=== PATIENT | male | born 1985 | race Caucasian/White ===

== ENCOUNTER 2016-11-12 12:58 | Emergency (ER) | payer OTHER ==
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
--- NOTE | 2016-11-12 14:15 | ED ORDER SUMMARY ---
..... Patient: BRADLEY CHEW OrderSheet [facility] VisitID: [id number] [address] [place] [address] 30y, M Registration Date/Time: 11/12/2016 ORDER SHEET Weight: 63.5 kg (stated) Allergies: No Known Drug Allergy GENERAL ORDERS: Ribs Unilat w PA Chest Right Urgent (13:07 11/12/2016 Estelita A.R.N.P.) (Ack 13:08 LNations ER Tech1) (14:34 Thad R.N.) MEDICATION ORDERS: IV FLUIDS: ORDER SHEET NOTES: [Electronically signed by Daisy Lynn R.N. (14:35 11/12/2016)] [Electronically signed by Tiffanie CrookR.N.P. (17:46 11/12/2016)] [Electronically locked/signed by Daisy Lynn R.N. (14:35 11/12/2016)]
--- NOTE | 2016-11-12 14:15 | ED ORDER SUMMARY ---
..... Patient: BRADLEY CHEW OrderSheet Located [facility] VisitID: [id number] [address] [place] [address] 30y, M Registration Date/Time: 11/12/2016 ORDER SHEET Weight: 63.5 kg (stated) Allergies: No Known Drug Allergy GENERAL ORDERS: Ribs Unilat w PA Chest Right Urgent (13:07 11/12/2016 Estelita A.R.N.P.) (Ack 13:08 LNations ER Tech1) (14:34 Thad R.N.) MEDICATION ORDERS: IV FLUIDS: ORDER SHEET NOTES: [Electronically signed by Daisy Lynn R.N. (14:35 11/12/2016)] [Electronically signed by Tiffanie CrookR.N.P. (17:46 11/12/2016)] [Electronically locked/signed by Daisy Lynn R.N. (14:35 11/12/2016)]
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
--- NOTE | 2016-11-12 17:47 | ED MED RECONCILIATION SUMMARY ---
Patient: SHARRON ALLENILLO BRADLEY Medication Reconciliation Report [facility] VisitID: [id number] [place] [address] 30y, M Registration Date/Time: 11/12/2016 Weight: 63.5 kg Height/Length: 65 in. BMI: 23.3 ALLERGIES: No Known Drug Allergy The patient's Home Medications are listed below: NONE. The source(s) of the original Home Medication information: patient The following Medications were given to the patient in the Emergency Department: None. The following Medications were prescribed to the patient: Flexeril 10 mg: Take 1 orally every 8 hours as needed for muscle spasm. Dispense twenty (20). No refills. Substitution is permissible. -- Tiffanie Crook, Britta.R.N.P. Ultram 50 mg tablets: take 1-2 orally every 6 hours as needed for pain. Dispense twenty (20). No refills. Substitution is permissible. -- Tiffanie Crook A.R.N.P.
--- NOTE | 2016-11-12 17:47 | ED MED RECONCILIATION SUMMARY ---
Patient: SHARRON ALLENILLO BRADLEY Medication Reconciliation Report [facility] VisitID: [id number] [place] [address] 30y, M Registration Date/Time: 11/12/2016 Weight: 63.5 kg Height/Length: 65 in. BMI: 23.3 ALLERGIES: No Known Drug Allergy The patient's Home Medications are listed below: NONE. The source(s) of the original Home Medication information: patient The following Medications were given to the patient in the Emergency Department: None. The following Medications were prescribed to the patient: Flexeril 10 mg: Take 1 orally every 8 hours as needed for muscle spasm. Dispense twenty (20). No refills. Substitution is permissible. -- Tiffanie Crook, Britta.R.N.P. Ultram 50 mg tablets: take 1-2 orally every 6 hours as needed for pain. Dispense twenty (20). No refills. Substitution is permissible. -- Tiffanie Crook A.R.N.P.
--- NOTE | 2016-11-12 17:47 | ED MAR SUMMARY ---
..... Medication Administration Record [facility] [address] [place], [place] [id number] Patient: BRADLEY CHEW Visit ID: [id number] 30y, M Weight: 63.5 kg Height/Length: 65 in BMI: 23.3 ALLERGIES: No Known Drug Allergy
--- NOTE | 2016-11-12 17:47 | ED MAR SUMMARY ---
..... Medication Administration Record [facility] [address] [place], [place] [id number] Patient: BRADLEY CHEW Visit ID: [id number] 30y, M Weight: 63.5 kg Height/Length: 65 in BMI: 23.3 ALLERGIES: No Known Drug Allergy
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
== END 2016-11-12 14:25 | disposition home or self-care (01) ==
LOC: ED SRH 12:58
DX: S29.011A Strain of muscle and tendon of front wall of thorax, initial encounter (principal); S20.311A Abrasion of right front wall of thorax, initial encounter; S40.811A Abrasion of right upper arm, initial encounter; S60.511A Abrasion of right hand, initial encounter; V43.63XA Car passenger injured in collision with pick-up truck in traffic accident, initial encounter; Y99.0 Civilian activity done for income or pay